=== PATIENT | female | born 1930 | race Caucasian/White ===

== ENCOUNTER 2018-02-01 17:53 | Emergency (ER) | payer OTHER ==
[~2018-02-01] VITALS: Ht 162.6 cm; Wt 59.0 kg
[~2018-02-01 17:53] MED LIST: ALPR1TAB2 PO; ATEN-60 PO; CALC667C PO; CYAN1TAB14 PO; ESOM20CA PO; HYDR-2595 PO
[2018-02-01 18:42] LABS: Hematocrit 45.3 % (36.0-46.0); Hemoglobin 15.1 g/dL (12.2-16.2); Mean Corpuscular Hemoglobin 31.6 pg (28.0-32.0); Mean Corpuscular Hgb Conc. 33.4 g/dL (32.0-36.0); Mean Corpuscular Volume 94.7 fL (80.0-100.0); Platelet Count (auto) 155 10^3/uL (140-450); Red Blood Cells 4.78 10^6/uL (4.0-5.20); Red Cell Distribution Width 13.3 % (11.8-14.3); White Blood Cell 12.6 10^3/uL (4.4-10.8)
[2018-02-01 18:53] LABS: Basophils % (manual) 0 (0.0-2.0); Blast Cells 0; Eosinophils % (manual) 0 (0-7); Metamyelocytes % 0; Myelocytes % 0; Promyelocytes % 0; Reactive Lymphocytes 0
[2018-02-01 19:03] LABS: Alanine Aminotransferase 281 U/L (13-56); Albumin 3.5 g/dL (3.4-5.0); Alkaline Phosphatase 391 U/L (45-117); Anion Gap 6 (5-15); Aspartate Aminotransferase 715 U/L (15-37); BUN/Creatinine Ratio 30.4; Bilirubin, Total 1.4 mg/dL (0.2-1.0); Blood Urea Nitrogen 21 mg/dL (7-18); Calcium 8.6 mg/dL (8.5-10.1); Carbon Dioxide 24 mmol/L (21-32); Chloride 107 mmol/L (98-107); GFR African American 104 mL/min; GFR Non-African American 86 mL/min; Glucose 148 mg/dL (74-106); Magnesium 1.6 mg/dL (1.6-2.6); Potassium 3.6 mmol/L (3.5-5.1); Sodium 137 mmol/L (136-145); Total Protein 6.8 g/dL (6.4-8.2)
[2018-02-01 19:35] LABS: Band Neutrophils % (manual) 2; Lymphocytes % (manual) 3 (10.0-50.0); Monocytes % (manual) 3 (0-12)
[2018-02-01 20:59] LABS: Urine Bacteria MANY /hpf (None Seen); Urine Blood Negative /uL (Negative); Urine Mucus FEW (None Seen); Urine Specific Gravity 1.026 (1.001-1.035); Urine WBC 65 /hpf (0 - 5)
[2018-02-01 22:00] VITALS: BP 98/65
[2018-02-01] MEDS ORDERED: HYDROmorphone HCL 2 MG/ML VL IV ONE (22:15)
[2018-02-01] MEDS ORDERED: ONDANSETRON HCL 4 MG/2 ML VIAL IV ONE (22:15)
== END 2018-02-01 22:45 | disposition left against medical advice (07) ==
LOC: ER 17:53
DX: K80.50 Calculus of bile duct without cholangitis or cholecystitis without obstruction (principal); I10 Essential (primary) hypertension; Z90.49 Acquired absence of other specified parts of digestive tract; Z90.89 Acquired absence of other organs; Z88.1 Allergy status to other antibiotic agents; Z88.0 Allergy status to penicillin; Z88.5 Allergy status to narcotic agent; Z79.899 Other long term (current) drug therapy
CPT/HCPCS: 36415; 71045; 74176; 80053; 81001; 83735; 83880; 84484; 85007; 85027; 85379; 93005; 96374; 96375; 99285; J1170; J2405

== ENCOUNTER 2018-08-07 10:39 | Emergency (ER) | payer OTHER ==
[~2018-08-07] VITALS: Ht 162.6 cm; Wt 59.0 kg
[2018-08-07 12:09] LABS: Basophils # (auto) 0 uL; Basophils % (auto) 0.2 % (0.0-2.0); Eosinophils # (auto) 0 uL; Eosinophils % (auto) 0.1 % (0.0-7.0); Hematocrit 45.2 % (36.0-46.0); Hemoglobin 15.1 g/dL (12.2-16.2); Lymphocytes % (auto) 8.7 % (10.0-50.0); Mean Corpuscular Hemoglobin 31.7 pg (28.0-32.0); Mean Corpuscular Hgb Conc. 33.3 g/dL (32.0-36.0); Mean Corpuscular Volume 95.2 fL (80.0-100.0); Monocytes # (auto) 0.5 uL; Monocytes % (auto) 4.7 % (0.0-12.0); Neutrophils # (auto) 9.5 uL; Neutrophils % (auto) 86.3 % (37.0-80.0); Nucleated Red Blood Cells % 0.1 %; Platelet Count (auto) 187 10^3/uL (140-450); Red Blood Cells 4.75 10^6/uL (4.0-5.20); Red Cell Distribution Width 12.8 % (11.8-14.3)
[2018-08-07 12:30] LABS: Alanine Aminotransferase 15 U/L (13-56); Albumin 3.6 g/dL (3.4-5.0); Anion Gap 6 (5-15); Aspartate Aminotransferase 12 U/L (15-37); Blood Urea Nitrogen 18 mg/dL (7-18); Carbon Dioxide 28 mmol/L (21-32); Chloride 104 mmol/L (98-107); Glucose 107 mg/dL (74-106); Potassium 4.2 mmol/L (3.5-5.1); Sodium 138 mmol/L (136-145)
[2018-08-07 12:31] LABS: INR 0.93 (0.9-1.15); Partial Thromboplastin Time 25.4 sec (23.78-33.04)
[2018-08-07 12:35] LABS: Alkaline Phosphatase 130 U/L (45-117); BUN/Creatinine Ratio 32.1; Bilirubin, Total 0.4 mg/dL (0.2-1.0); GFR African American 132 mL/min; GFR Non-African American 109 mL/min
[2018-08-07 13:00] VITALS: BP 179/81
[2018-08-07] MEDS ORDERED: HYDROcodone-ACET 5/325MG TAB PO ONE (14:00)
== END 2018-08-07 14:40 | disposition home or self-care (01) ==
LOC: ER 10:39
DX: R04.0 Epistaxis (principal); I10 Essential (primary) hypertension; Z87.440 Personal history of urinary (tract) infections; Z86.73 Personal history of transient ischemic attack (TIA), and cerebral infarction without residual deficits; Z90.49 Acquired absence of other specified parts of digestive tract; Z88.0 Allergy status to penicillin; Z88.1 Allergy status to other antibiotic agents; Z88.6 Allergy status to analgesic agent; Z91.041 Radiographic dye allergy status; Z79.899 Other long term (current) drug therapy
CPT/HCPCS: 30901; 36415; 80053; 84484; 85025; 85610; 85730

== ENCOUNTER 2020-11-13 15:48 | Inpatient (IN) | payer OTHER ==
[~2020-11-13] VITALS: Ht 162.6 cm; Wt 58.9 kg
[2020-11-13] MEDS ORDERED: SODIUM CHLORIDE 0.9% 500 ML IV ONE (16:15)
[2020-11-13 17:05] LABS: Basophils # (auto) 0 10 ^3/uL (0-0.2); Basophils % (auto) 0.3 % (0.0-2.0); Eosinophils # (auto) 0.1 10 ^3/uL (0-0.8); Eosinophils % (auto) 2.9 % (0.0-7.0); Hemoglobin 13.5 g/dL (12.2-16.2); Lymphocytes % (auto) 19.2 % (10.0-50.0); Mean Corpuscular Hgb Conc. 33.7 g/dL (32.0-36.0); Mean Corpuscular Volume 91.9 fL (80.0-100.0); Monocytes # (auto) 0.5 10 ^3/uL (0-1.3); Monocytes % (auto) 9.7 % (0.0-12.0); Neutrophils # (auto) 3.5 10 ^3/uL (1.6-8.6); Neutrophils % (auto) 67.9 % (37.0-80.0); Nucleated Red Blood Cells % 0.1 %; Red Blood Cells 4.36 10^6/uL (4.0-5.20); Red Cell Distribution Width 12.9 % (11.8-14.3); White Blood Cell 5.1 10^3/uL (4.4-10.8)
[2020-11-13 17:19] LABS: Anion Gap 6 (5-15); Blood Urea Nitrogen 14 mg/dL (7-18); CRP High Sensitivity 0.91 mg/dL (< 0.3); Calcium 7.9 mg/dL (8.5-10.1); Carbon Dioxide 26 mmol/L (21-32); Chloride 107 mmol/L (98-107); Glucose 99 mg/dL (74-106); Magnesium 1.9 mg/dL (1.6-2.6); Potassium 3.7 mmol/L (3.5-5.1); Sodium 139 mmol/L (136-145)
[2020-11-13 17:25] LABS: Alanine Aminotransferase 15 U/L (13-56); Alkaline Phosphatase 85 U/L (45-117); Aspartate Aminotransferase 14 U/L (15-37); BUN/Creatinine Ratio 30.4; Bilirubin, Total 0.3 mg/dL (0.2-1.0); GFR African American 164 mL/min; GFR Non-African American 136 mL/min; Total Protein 6.3 g/dL (6.4-8.2)
[2020-11-13 17:55] LABS: Urine Bacteria MANY /hpf (None Seen); Urine Blood Negative /uL (Negative); Urine Specific Gravity 1.011 (1.001-1.035); Urine WBC 22 /hpf (0 - 5)
[2020-11-13] MEDS ORDERED: NITROGLYCERIN 0.4 MG SL TAB SL PRN (19:45)
[2020-11-13] MEDS ORDERED: SODIUM CHLORIDE 0.9% 1,000 ML IV ONE (19:45)
[2020-11-13] MEDS ORDERED: ALPRAZolam 0.25 MG TAB PO PRN (19:45)
[2020-11-13] MEDS ORDERED: MORPHINE SULF INJ 2 MG/ML SYRINGE 1ML IV PRN ×2 (19:45)
[2020-11-13] MEDS: HYDROcodone-ACET 10/325MG TAB PO PRN (21:17)
[2020-11-13 22:00] VITALS: BP 162/81
[2020-11-13] MEDS ORDERED: LORazepam 2MG/ML-1ML VIAL IV PRN (22:30)
[2020-11-13] MEDS: NITROFURANTOIN 100 mg CAP PO SCH (22:47)
[2020-11-14] VITALS (7 sets, daily range): BP systolic 107–167; BP diastolic 53–96
[2020-11-14] MEDS: HYDROcodone-ACET 10/325MG TAB PO PRN ×3 (05:55→21:54)
[2020-11-14] MEDS: CALCIUM ACETATE 667 MG CAP PO SCH ×3 (08:10→18:32)
[2020-11-14] MEDS ORDERED: cefTRIAXone 1GM/50ML D5W 50 ML IV SCH (09:00)
[2020-11-14] MEDS: NITROFURANTOIN 100 mg CAP PO SCH ×2 (09:27→21:53)
[2020-11-14] MEDS: ATENOLOL 25 MG TAB PO SCH (09:27)
[2020-11-14 10:22] LABS: Calcium 9.2 mg/dL (8.5-10.1); Potassium 4.9 mmol/L (3.5-5.1)
[2020-11-14 10:24] LABS: BUN/Creatinine Ratio 13.4
[2020-11-14] MEDS ORDERED: hydrALAZINE HCL 20 MG/ML VL IV PRN (18:15)
[2020-11-14] MEDS ORDERED: amLODIPine BESYLATE 5 MG TAB PO ONE (18:15)
[2020-11-14] MEDS: SULFAMETHOX W/TRIMETH(800/160MG) DS TAB PO SCH (21:53)
[2020-11-14] MEDS ORDERED: ATORVASTATIN 20 MG TAB PO SCH (22:00)
[2020-11-14 23:05] LABS: Cholesterol 99 mg/dL (< 200); Triglycerides 102 mg/dL (< 150)
[2020-11-14 23:08] LABS: HDL Cholesterol 37 mg/dL (40-59); LDL Cholesterol 51 mg/dL (< 100)
[2020-11-15 05:30] VITALS: BP 133/73
[2020-11-15 06:17] LABS: Basophils # (auto) 0 10 ^3/uL (0-0.2); Basophils % (auto) 0.3 % (0.0-2.0); Eosinophils # (auto) 0.2 10 ^3/uL (0-0.8); Eosinophils % (auto) 2.7 % (0.0-7.0); Hematocrit 40.7 % (36.0-46.0); Hemoglobin 14.1 g/dL (12.2-16.2); Lymphocytes # (auto) 2.3 10 ^3/uL (0.4-5.4); Lymphocytes % (auto) 37.7 % (10.0-50.0); Mean Corpuscular Hemoglobin 31.7 pg (28.0-32.0); Mean Corpuscular Hgb Conc. 34.7 g/dL (32.0-36.0); Mean Corpuscular Volume 91.4 fL (80.0-100.0); Monocytes # (auto) 0.7 10 ^3/uL (0-1.3); Monocytes % (auto) 10.9 % (0.0-12.0); Neutrophils % (auto) 48.4 % (37.0-80.0); Red Blood Cells 4.45 10^6/uL (4.0-5.20); Red Cell Distribution Width 12.6 % (11.8-14.3); White Blood Cell 6.2 10^3/uL (4.4-10.8)
[2020-11-15 06:39] LABS: Potassium 4.3 mmol/L (3.5-5.1)
[2020-11-15 07:14] LABS: Calcium 8.8 mg/dL (8.5-10.1)
[2020-11-15 07:30] LABS: Cholesterol 100 mg/dL (< 200); HDL Cholesterol 39 mg/dL (40-59); LDL Cholesterol 48 mg/dL (< 100); Triglycerides 95 mg/dL (< 150)
[2020-11-15] MEDS: CALCIUM ACETATE 667 MG CAP PO SCH ×3 (08:00→18:00)
[2020-11-15] MEDS: HYDROcodone-ACET 10/325MG TAB PO PRN ×2 (08:11→16:32)
[2020-11-15 09:00] VITALS: BP 140/73
[2020-11-15] MEDS ORDERED: amLODIPine BESYLATE 5 MG TAB PO SCH (10:00)
[2020-11-15] MEDS: ATENOLOL 25 MG TAB PO SCH (10:00)
[2020-11-15] MEDS: SULFAMETHOX W/TRIMETH(800/160MG) DS TAB PO SCH (10:00)
[2020-11-15] MEDS: NITROFURANTOIN 100 mg CAP PO SCH (10:00)
[2020-11-15] MEDS ORDERED: ASPirin 81 mg TAB PO SCH (10:00)
[2020-11-15 13:00] VITALS: BP 104/71
[2020-11-15] MEDS ORDERED: SULF800T7 PO (14:15)
[2020-11-15] MEDS ORDERED: AML5T PO (14:15)
[2020-11-15] MEDS ORDERED: ATOR20TA50 PO (14:15)
[2020-11-15] MEDS ORDERED: ASPI1CHW15 PO (14:15)
[2020-11-15 15:15] VITALS: BP 160/78
[2020-11-15 17:39] VITALS: BP 126/64
== END 2020-11-15 19:52 | disposition home health service (06) | DRG 65 ==
LOC: EDBD 15:48 → ER 15:48 → TELE 19:33 → TELE-EAST 21:45
PROVIDERS: ADMIT Nurse Practitioner Acute Care; ATTEND Internal Medicine
DX: I63.9 Cerebral infarction, unspecified (principal); N39.0 Urinary tract infection, site not specified; E44.0 Moderate protein-calorie malnutrition; I10 Essential (primary) hypertension; F41.9 Anxiety disorder, unspecified; I95.9 Hypotension, unspecified; Z96.643 Presence of artificial hip joint, bilateral; H54.7 Unspecified visual loss; Z20.822 Contact with and (suspected) exposure to COVID-19; Z68.22 Body mass index [BMI] 22.0-22.9, adult; Z86.711 Personal history of pulmonary embolism; Z82.49 Family history of ischemic heart disease and other diseases of the circulatory system; Z88.0 Allergy status to penicillin; Z88.6 Allergy status to analgesic agent; Z88.8 Allergy status to other drugs, medicaments and biological substances
CPT/HCPCS: 36415; 70450; 70551; 71045; 80048; 80053; 80061; 81001; 82728; 83605; 83735; 84443; 84484; 85025; 86141; 87040; 87086; 87426; 93005; 93886; 96360; 96361; 97163; 99291; G0378

== ENCOUNTER 2021-02-07 12:49 | Inpatient (IN) | payer OTHER ==
[~2021-02-07] VITALS: Ht 160 cm; Wt 59.4 kg
[~2021-02-07 12:49] MED LIST changes: +AML5T PO; +ASPI1CHW15 PO; +ATOR20TA50 PO; +SULF800T7 PO
[2021-02-07] MEDS ORDERED: cloNIDine HCL 0.1 MG TAB PO ONE (13:00)
[2021-02-07 14:49] LABS: Basophils # (auto) 0 10 ^3/uL (0-0.2); Basophils % (auto) 0.4 % (0.0-2.0); Eosinophils # (auto) 0 10 ^3/uL (0-0.8); Eosinophils % (auto) 0.4 % (0.0-7.0); Hematocrit 42.4 % (36.0-46.0); Hemoglobin 14.3 g/dL (12.2-16.2); Lymphocytes # (auto) 1.1 10 ^3/uL (0.4-5.4); Lymphocytes % (auto) 10.8 % (10.0-50.0); Mean Corpuscular Hemoglobin 31.9 pg (28.0-32.0); Mean Corpuscular Hgb Conc. 33.7 g/dL (32.0-36.0); Mean Corpuscular Volume 94.7 fL (80.0-100.0); Monocytes # (auto) 1.1 10 ^3/uL (0-1.3); Monocytes % (auto) 10.8 % (0.0-12.0); Neutrophils # (auto) 8.1 10 ^3/uL (1.6-8.6); Neutrophils % (auto) 77.6 % (37.0-80.0); Red Blood Cells 4.47 10^6/uL (4.0-5.20); Red Cell Distribution Width 14.5 % (11.8-14.3); White Blood Cell 10.4 10^3/uL (4.4-10.8)
[2021-02-07 14:54] LABS: Albumin 2.9 g/dL (3.4-5.0); Anion Gap 8 (5-15); Blood Urea Nitrogen 13 mg/dL (7-18); Calcium 8.5 mg/dL (8.5-10.1); Carbon Dioxide 25 mmol/L (21-32); Chloride 106 mmol/L (98-107); Glucose 102 mg/dL (74-106); Potassium 3.2 mmol/L (3.5-5.1); Sodium 139 mmol/L (136-145)
[2021-02-07] MEDS ORDERED: MORPHINE SULFATE INJECTION 2 MG/ML SYRG IV PRN (15:00)
[2021-02-07] MEDS ORDERED: NITROGLYCERIN 0.4 MG SL TAB SL PRN (15:00)
[2021-02-07 15:04] LABS: Alanine Aminotransferase 113 U/L (13-56); Alkaline Phosphatase 368 U/L (45-117); Aspartate Aminotransferase 216 U/L (15-37); BUN/Creatinine Ratio 27.7; Bilirubin, Total 1.1 mg/dL (0.2-1.0); GFR African American 160 mL/min; GFR Non-African American 133 mL/min; Total Protein 6.4 g/dL (6.4-8.2)
[2021-02-07] MEDS ORDERED: ACETAMINOPHEN 325 MG TAB PO ONE ×3 (15:44→20:15)
[2021-02-07] MEDS ORDERED: ATEN25TA PO (16:37)
[2021-02-07] MEDS ORDERED: HYDR-4798 PO (16:38)
[2021-02-07] MEDS ORDERED: ASPI-498 PO (16:39)
[2021-02-07] MEDS ORDERED: POM ×2 (16:40→16:43)
[2021-02-07] MEDS ORDERED: DOCU-80 PO (16:41)
[2021-02-07] MEDS ORDERED: NIFEdipine ER 30 MG TAB PO ONE (17:15)
[2021-02-07 21:41] VITALS: BP 110/71
[2021-02-07 22:43] VITALS: BP 110/71
[2021-02-07 23:49] VITALS: BP 110/71
[2021-02-07] MEDS: ACETAMINOPHEN 325 MG TAB PO PRN (23:55)
[2021-02-08] MEDS ORDERED: POTASSIUM CHL 20MEQ/100ML 100 ML IV ONE (02:15)
[2021-02-08] MEDS ORDERED: POTASSIUM CHL 20 Meq TABLET PO ONE (02:15)
[2021-02-08] MEDS ORDERED: NITROGLYCERIN 0.4 MG SL TAB SL PRN (03:15)
[2021-02-08] MEDS ORDERED: MORPHINE SULFATE INJECTION 2 MG/ML SYRG IV PRN (03:15)
[2021-02-08] MEDS ORDERED: ONDANSETRON HCL 4 MG/2 ML VIAL IV PRN (03:15)
[2021-02-08] MEDS ORDERED: DEXTROSE (50%) 50ML SYRG IV PRN (03:15)
[2021-02-08] MEDS ORDERED: ALUM & MAG HYDROX-SIMETH LIQ(MAALOX) 30 ML PO PRN (03:15)
[2021-02-08] MEDS ORDERED: DOCUSATE SOD 100 MG CAP PO PRN (03:15)
[2021-02-08] MEDS ORDERED: TEMAZEPAM 15 MG CAP PO PRN (03:15)
[2021-02-08] MEDS: SODIUM CHLORIDE 0.9% 1,000 ML IV SCH (04:13)
[2021-02-08 05:18] VITALS: BP 136/68
[2021-02-08] MEDS: InsuLIN REG 1unit/0.01ml Soln (100units/ml) SC SCH ×4 (06:25→21:01)
[2021-02-08] MEDS: ACCU-CHEK COMFORT CURVE STRIP VI SCH ×4 (06:25→21:00)
[2021-02-08 09:00] VITALS: BP 148/84
[2021-02-08] MEDS: METOPROLOL TARTRATE 25 MG TAB PO SCH ×2 (09:19→20:54)
[2021-02-08] MEDS: ENOXAPARIN SOD 40 MG/0.4 ML SYRINGE SC SCH (09:19)
[2021-02-08] MEDS: HYDROcodone-ACET 5/325MG TAB PO PRN ×3 (09:20→20:53)
[2021-02-08] MEDS ORDERED: FAMOTIDINE (10MG/ML) 2ML VL IV SCH (10:00)
[2021-02-08] MEDS ORDERED: POTASSIUM CHL 20 Meq TABLET PO SCH (10:00)
[2021-02-08 11:09] LABS: Potassium 3.8 mmol/L (3.5-5.1)
[2021-02-08 11:27] LABS: Albumin 2.9 g/dL (3.4-5.0); BUN/Creatinine Ratio 16.2; Bilirubin, Total 0.9 mg/dL (0.2-1.0); Calcium 8.8 mg/dL (8.5-10.1); Total Protein 6.4 g/dL (6.4-8.2)
[2021-02-08] MEDS: LORazepam 0.5 MG TAB PO PRN (11:30)
[2021-02-08 13:00] VITALS: BP 145/71
[2021-02-08 15:33] LABS: Urine Bacteria NONE SEEN /hpf (None Seen); Urine Blood Negative /uL (Negative); Urine Specific Gravity 1.007 (1.001-1.035); Urine WBC 72 /hpf (0 - 5); Urine WBC Clumps PRESENT /hpf (None Seen)
[2021-02-08 15:37] LABS: Amphetamine Screen, Urine NEGATIVE (NEGATIVE); Barbiturate Scree,Urine NEGATIVE (NEGATIVE); Benzodiazephine Screen, Urine NEGATIVE (NEGATIVE); Cannabinoid Screen, Urine NEGATIVE (NEGATIVE); Cocaine Screen, Urine NEGATIVE (NEGATIVE); Opiate Scree,Urine NEGATIVE (NEGATIVE); Phencyclidine Screen, Urine NEGATIVE (NEGATIVE)
[2021-02-08] MEDS: hydrALAZINE HCL 20 MG/ML VL IV PRN (16:07)
[2021-02-08 17:00] VITALS: BP 137/66
[2021-02-08] MEDS ORDERED: CLINDAMYCIN 600MG IV 50 ML IV ONE (18:30)
[2021-02-08] MEDS: PANTOPRAZOLE 40 MG/10 ML VIAL INJ IV SCH (18:59)
[2021-02-08] MEDS: SUCRALFATE 1 GM/10 ML ORAL SUSP PO SCH (20:57)
[2021-02-08 22:00] VITALS: BP 132/64
[2021-02-09] MEDS: SODIUM CHLORIDE 0.9% 1,000 ML IV SCH (03:15)
[2021-02-09 05:00] VITALS: BP 162/91
[2021-02-09] MEDS: HYDROcodone-ACET 5/325MG TAB PO PRN ×2 (05:29→10:00)
[2021-02-09] MEDS: hydrALAZINE HCL 20 MG/ML VL IV PRN ×2 (05:30→23:10)
[2021-02-09] MEDS: InsuLIN REG 1unit/0.01ml Soln (100units/ml) SC SCH ×4 (05:31→23:08)
[2021-02-09] MEDS: ACCU-CHEK COMFORT CURVE STRIP VI SCH ×4 (05:31→22:00)
[2021-02-09] MEDS: SUCRALFATE 1 GM/10 ML ORAL SUSP PO SCH ×4 (05:31→23:07)
[2021-02-09 06:02] LABS: Potassium 3.7 mmol/L (3.5-5.1)
[2021-02-09 06:10] LABS: BUN/Creatinine Ratio 12.5; Calcium 9.1 mg/dL (8.5-10.1)
[2021-02-09] MEDS: LORazepam 0.5 MG TAB PO PRN (08:36)
[2021-02-09 09:00] VITALS: BP 148/87
[2021-02-09] MEDS: PANTOPRAZOLE 40 MG/10 ML VIAL INJ IV SCH (09:58)
[2021-02-09] MEDS: METOPROLOL TARTRATE 25 MG TAB PO SCH ×2 (09:59→23:07)
[2021-02-09] MEDS: POTASSIUM CHL 20 Meq TABLET PO SCH (09:59)
[2021-02-09] MEDS: ENOXAPARIN SOD 40 MG/0.4 ML SYRINGE SC SCH (10:00)
[2021-02-09 13:00] VITALS: BP 133/64
[2021-02-09 16:29] LABS: Albumin 2.9 g/dL (3.4-5.0); Calcium 8.7 mg/dL (8.5-10.1); Potassium 4.2 mmol/L (3.5-5.1)
[2021-02-09 16:39] LABS: BUN/Creatinine Ratio 14.9; Bilirubin, Total 0.7 mg/dL (0.2-1.0)
[2021-02-09 16:40] VITALS: BP 149/80
[2021-02-09 22:00] VITALS: BP 161/80
[2021-02-09] MEDS: HYDROmorphone HCL 2 MG/ML VL IV PRN (23:09)
[2021-02-10 05:00] VITALS: BP 151/74
[2021-02-10] MEDS: InsuLIN REG 1unit/0.01ml Soln (100units/ml) SC SCH ×3 (05:39→17:00)
[2021-02-10] MEDS: ACCU-CHEK COMFORT CURVE STRIP VI SCH ×3 (05:39→17:13)
[2021-02-10] MEDS: SUCRALFATE 1 GM/10 ML ORAL SUSP PO SCH ×3 (05:50→17:48)
[2021-02-10] MEDS: hydrALAZINE HCL 20 MG/ML VL IV PRN (05:51)
[2021-02-10] MEDS: HYDROmorphone HCL 2 MG/ML VL IV PRN ×2 (05:52→11:57)
[2021-02-10] MEDS: POTASSIUM CHL 20 Meq TABLET PO SCH (08:31)
[2021-02-10] MEDS: METOPROLOL TARTRATE 25 MG TAB PO SCH (08:31)
[2021-02-10] MEDS: PANTOPRAZOLE 40 MG/10 ML VIAL INJ IV SCH (08:31)
[2021-02-10] MEDS: ENOXAPARIN SOD 40 MG/0.4 ML SYRINGE SC SCH (08:32)
[2021-02-10 08:40] VITALS: BP 143/68
[2021-02-10 08:47] LABS: Albumin 3.1 g/dL (3.4-5.0); Calcium 9.5 mg/dL (8.5-10.1); Potassium 3.9 mmol/L (3.5-5.1)
[2021-02-10 09:10] LABS: BUN/Creatinine Ratio 12.2; Bilirubin, Total 0.8 mg/dL (0.2-1.0)
[2021-02-10] MEDS: LORazepam 0.5 MG TAB PO PRN (09:13)
[2021-02-10 13:00] VITALS: BP 160/83
[2021-02-10 17:02] VITALS: BP 149/69
[2021-02-10 17:49] VITALS: BP 160/83
[2021-02-10] MEDS: ACETAMINOPHEN 325 MG TAB PO PRN (18:09)
[2021-02-11 12:09] LABS: Hepatitis A Ab IgM Negative
[2021-02-11 12:10] LABS: Hepatitis B Core IgM Negative; Hepatitis B Surface Antigen Negative (Negative); Hepatitis C Antibody Negative (Negative)
== END 2021-02-10 18:20 | disposition home health service (06) | DRG 305 ==
LOC: ER 12:49 → EDBD 12:49 → TELE 14:54 → TELE-CENTR 21:00
PROVIDERS: ADMIT Hospitalist; ATTEND Internal Medicine
DX: I16.0 Hypertensive urgency (principal); M80.00XA Age-related osteoporosis with current pathological fracture, unspecified site, initial encounter for fracture; N39.0 Urinary tract infection, site not specified; E11.9 Type 2 diabetes mellitus without complications; E87.6 Hypokalemia; F01.50 Vascular dementia, unspecified severity, without behavioral disturbance, psychotic disturbance, mood disturbance, and anxiety; H91.90 Unspecified hearing loss, unspecified ear; I69.311 Memory deficit following cerebral infarction; K21.9 Gastro-esophageal reflux disease without esophagitis; M19.90 Unspecified osteoarthritis, unspecified site; R62.7 Adult failure to thrive; I50.9 Heart failure, unspecified; E78.5 Hyperlipidemia, unspecified; F41.9 Anxiety disorder, unspecified; I11.0 Hypertensive heart disease with heart failure; Z20.822 Contact with and (suspected) exposure to COVID-19; Z68.22 Body mass index [BMI] 22.0-22.9, adult; R79.89 Other specified abnormal findings of blood chemistry; E88.09 Other disorders of plasma-protein metabolism, not elsewhere classified; Z88.1 Allergy status to other antibiotic agents; Z88.0 Allergy status to penicillin; Z88.8 Allergy status to other drugs, medicaments and biological substances; Z91.041 Radiographic dye allergy status; Z79.899 Other long term (current) drug therapy; Z82.49 Family history of ischemic heart disease and other diseases of the circulatory system; Z87.440 Personal history of urinary (tract) infections; Z88.9 Allergy status to unspecified drugs, medicaments and biological substances; Z90.49 Acquired absence of other specified parts of digestive tract; Z90.710 Acquired absence of both cervix and uterus
CPT/HCPCS: 36415; 71045; 76705; 80048; 80053; 80074; 80307; 81001; 82728; 82962; 83036; 83690; 83735; 84484; 85025; 86038; 87040; 87086; 87088; 87186; 87426; 93005; 93306; 99291; C9113; G0378; J1815; J3480; J3490

== ENCOUNTER 2021-05-27 17:30 | Inpatient (IN) | payer OTHER ==
[~2021-05-27] VITALS: Ht 157.5 cm; Wt 72.6 kg
[~2021-05-27 17:30] MED LIST changes: -ALPR1TAB2 PO; -AML5T PO; -ASPI1CHW15 PO; -ATEN-60 PO; +ATEN25TA PO; -ATOR20TA50 PO; -CALC667C PO; +DOCU-80 PO; -HYDR-2595 PO; +POM; -SULF800T7 PO
[2021-05-27] MEDS ORDERED: ONDANSETRON HCL 4 MG/2 ML VIAL IV ONE (19:15)
[2021-05-27] MEDS ORDERED: SODIUM CHLORIDE 0.9% 500 ML IVB ONE (19:15)
[2021-05-27 20:03] LABS: Basophils # (auto) 0.1 10 ^3/uL (0-0.2); Basophils % (auto) 0.5 % (0.0-2.0); Eosinophils # (auto) 0 10 ^3/uL (0-0.8); Hematocrit 41.4 % (36.0-46.0); Hemoglobin 13.9 g/dL (12.2-16.2); Lymphocytes # (auto) 0.6 10 ^3/uL (0.4-5.4); Lymphocytes % (auto) 3.1 % (10.0-50.0); Mean Corpuscular Hemoglobin 31.2 pg (28.0-32.0); Mean Corpuscular Hgb Conc. 33.7 g/dL (32.0-36.0); Mean Corpuscular Volume 92.8 fL (80.0-100.0); Monocytes # (auto) 1.2 10 ^3/uL (0-1.3); Monocytes % (auto) 6.4 % (0.0-12.0); Neutrophils # (auto) 16.2 10 ^3/uL (1.6-8.6); Red Blood Cells 4.46 10^6/uL (4.0-5.20); Red Cell Distribution Width 12.3 % (11.8-14.3)
[2021-05-27 20:20] LABS: Albumin 2.7 g/dL (3.4-5.0); Calcium 8.7 mg/dL (8.5-10.1); Potassium 3.7 mmol/L (3.5-5.1)
[2021-05-27 20:25] LABS: BUN/Creatinine Ratio 20.5; Bilirubin, Total 2.2 mg/dL (0.2-1.0); Total Protein 6.6 g/dL (6.4-8.2)
[2021-05-27] MEDS ORDERED: HYDROcodone-ACET 5/325MG TAB PO PRN (23:00)
[2021-05-27] MEDS ORDERED: VANCOMYCIN PER PHARMACY 0 MG IV SCH (23:00)
[2021-05-27] MEDS ORDERED: SODIUM CHLORIDE 0.9% 1,000 ML IV ONE (23:00)
[2021-05-27] MEDS ORDERED: MORPHINE SULFATE INJECTION 2 MG/ML SYRG IV PRN (23:00)
[2021-05-27] MEDS ORDERED: ONDANSETRON HCL 4 MG/2 ML VIAL IV PRN (23:00)
[2021-05-27] MEDS ORDERED: hydrALAZINE HCL 10 MG TAB PO PRN (23:00)
[2021-05-27] MEDS ORDERED: ACETAMINOPHEN 325 MG TAB PO PRN (23:00)
[2021-05-28] MEDS ORDERED: VANCOMYCIN 1GM/250ML 250 ML IV ONE
[2021-05-28] MEDS ORDERED: PANTOPRAZOLE 40 MG/10 ML VIAL INJ IV ONE (03:20)
[2021-05-28 06:56] LABS: Basophils # (auto) 0 10 ^3/uL (0-0.2); Basophils % (auto) 0.1 % (0.0-2.0); Eosinophils # (auto) 0 10 ^3/uL (0-0.8); Hemoglobin 12.1 g/dL (12.2-16.2); Lymphocytes # (auto) 0.3 10 ^3/uL (0.4-5.4); Lymphocytes % (auto) 1.6 % (10.0-50.0); Mean Corpuscular Hemoglobin 31.4 pg (28.0-32.0); Mean Corpuscular Hgb Conc. 33.5 g/dL (32.0-36.0); Mean Corpuscular Volume 93.7 fL (80.0-100.0); Monocytes # (auto) 1.1 10 ^3/uL (0-1.3); Monocytes % (auto) 5.2 % (0.0-12.0); Neutrophils # (auto) 19.2 10 ^3/uL (1.6-8.6); Neutrophils % (auto) 93.1 % (37.0-80.0); Nucleated Red Blood Cells % 0.1 %; Red Blood Cells 3.84 10^6/uL (4.0-5.20); Red Cell Distribution Width 12.2 % (11.8-14.3); White Blood Cell 20.6 10^3/uL (4.4-10.8)
[2021-05-28 07:00] LABS: INR 1.18 (0.9-1.15)
[2021-05-28 07:09] LABS: BUN/Creatinine Ratio 28.1; Calcium 8.1 mg/dL (8.5-10.1); Potassium 3.2 mmol/L (3.5-5.1)
[2021-05-28] MEDS: POTASSIUM CHL 10MEQ/50ML 50 ML IV SCH ×2 (08:30→09:30)
[2021-05-28 09:51] LABS: Urine Bacteria MANY /hpf (None Seen); Urine Blood Negative /uL (Negative); Urine Mucus FEW (None Seen); Urine Specific Gravity 1.017 (1.001-1.035); Urine WBC 3 /hpf (0 - 5)
[2021-05-28] MEDS: PANTOPRAZOLE 40 MG/10 ML VIAL INJ IV SCH (21:57)
[2021-05-29] MEDS ORDERED: VANCOMYCIN 1GM/250ML 250 ML IV SCH (02:00)
[2021-05-29 10:17] LABS: Potassium 3.5 mmol/L (3.5-5.1)
[2021-05-29] MEDS: PANTOPRAZOLE 40 MG/10 ML VIAL INJ IV SCH (10:24)
[2021-05-29 10:26] LABS: Basophils # (auto) 0 10 ^3/uL (0-0.2); Basophils % (auto) 0.3 % (0.0-2.0); Eosinophils # (auto) 0 10 ^3/uL (0-0.8); Eosinophils % (auto) 0.3 % (0.0-7.0); Hematocrit 37.6 % (36.0-46.0); Hemoglobin 12.6 g/dL (12.2-16.2); Lymphocytes # (auto) 0.7 10 ^3/uL (0.4-5.4); Lymphocytes % (auto) 5.2 % (10.0-50.0); Mean Corpuscular Hemoglobin 31.6 pg (28.0-32.0); Mean Corpuscular Hgb Conc. 33.4 g/dL (32.0-36.0); Mean Corpuscular Volume 94.7 fL (80.0-100.0); Monocytes # (auto) 0.8 10 ^3/uL (0-1.3); Monocytes % (auto) 5.7 % (0.0-12.0); Neutrophils # (auto) 11.7 10 ^3/uL (1.6-8.6); Neutrophils % (auto) 88.5 % (37.0-80.0); Red Blood Cells 3.98 10^6/uL (4.0-5.20); Red Cell Distribution Width 12.4 % (11.8-14.3); White Blood Cell 13.2 10^3/uL (4.4-10.8)
[2021-05-29 10:30] LABS: Albumin 2.3 g/dL (3.4-5.0); BUN/Creatinine Ratio 28.1; Bilirubin, Total 2.4 mg/dL (0.2-1.0); Calcium 8.8 mg/dL (8.5-10.1)
[2021-05-29 15:19] VITALS: BP 128/53
== END 2021-05-29 15:50 | disposition hospice, home (50) | DRG 439 ==
LOC: EDUNIT# 17:30 → EDBD 17:30 → ER 17:40 → TELE 22:51
PROVIDERS: ADMIT Nurse Practitioner Family; ATTEND Nurse Practitioner Family
DX: K85.90 Acute pancreatitis without necrosis or infection, unspecified (principal); R65.10 Systemic inflammatory response syndrome (SIRS) of non-infectious origin without acute organ dysfunction; R62.7 Adult failure to thrive; K80.50 Calculus of bile duct without cholangitis or cholecystitis without obstruction; I10 Essential (primary) hypertension; F41.9 Anxiety disorder, unspecified; M19.90 Unspecified osteoarthritis, unspecified site; Z20.822 Contact with and (suspected) exposure to COVID-19; Z82.49 Family history of ischemic heart disease and other diseases of the circulatory system; Z86.73 Personal history of transient ischemic attack (TIA), and cerebral infarction without residual deficits; Z90.710 Acquired absence of both cervix and uterus; Z90.49 Acquired absence of other specified parts of digestive tract; Z79.899 Other long term (current) drug therapy; Z88.0 Allergy status to penicillin; Z88.1 Allergy status to other antibiotic agents; Z91.041 Radiographic dye allergy status; Z88.5 Allergy status to narcotic agent
CPT/HCPCS: 36415; 71045; 74176; 74181; 80048; 80053; 81001; 83690; 84484; 85025; 85610; 87426; 93005; 93306; C9113; G0378; J2405